=== PATIENT | male | born 1985 | race Caucasian/White ===

== ENCOUNTER 2018-10-12 08:12 | Emergency (ER) | payer BC ==
--- NOTE | 2018-10-12 09:04 | ED Physician Chart ---
ED Chief Complaint/HPI - Patient Information Date Seen:: 10/12/18 Time Seen:: 08:30 Chief Complaint:: acute onset dizziness change stool loose History of Present Illness:: today no vommitting no blood room spinning denies tinnitus no head ache no visual symptoms Allergies:: Allergies Allergy/AdvReac Type Severity Reaction Status Date / Time No Known Allergies Allergy Verified 10/12/18 08:21 Vitals:: Vital Signs - 8 hr 10/12/18 08:22 Temp 98.5 F HR 71 RR 19 BP 130/72 O2 Sat % 97 Review:: Nurse's Note Reviewed ED Review of Systems - Review of Systems General/Constitutional: No fever Skin: No skin lesions Head: No headache Eyes: No loss of vision ENT: No earache Neck: No neck pain Cardio Vascular: No chest pain Pulmonary: No SOB GI: Nausea, Diarrhea G/U: No dysuria Musculoskeletal: No bone or joint pain Hematopoietic: No bruising Allergic/Immuno: No urticaria Neurological: No focal symptoms, Vertigo ED Past Medical History - Past Medical History Past Medical History: No significant medical hx Family History: None Social History: No Drug Use Surgical History: None Psychiatricy History: None ED Physical Exam - Physical Examination General/Constitutional: Awake, Well-developed, well-nourished, Alert, GCS 15, Non-toxic appearing Head: Atraumatic Eyes: Lids, conjuctiva normal Skin: No rash ENMT: TM canals nl, Lips, teeth, gums nl Neck: Nontender Respiratory: Nl effort/Exclusion Cardio Vascular: RRR GI: No tenderness/rebounding/guarding, Nondistended, No mass/bruits : No CVA tenderness Extremities: No tenderness or effusion, Full ROM Neuro/Psych: Alert/oriented, Normal sensory exam, Normal motor strength Misc: Normal back ED Assessment - Assessment General Assessment: acute dizziness ED Septic Shock - . Is Septic Shock (SBP<90, OR Lactate>4 mmol\L) present?: No - <6hrs of presentation: Vital Signs: Vital Signs - 8 hr 10/12/18 08:22 Temp 98.5 F HR 71 RR 19 BP 130/72 O2 Sat % 97
[2018-10-12 09:08] LABS: % EOSINOPHILS 0.9 % (0.0-5.0); % LYMPHOCYTES 15.8 % (20.0-50.0); % MONOCYTES 2.8 % (2.0-10.0); % NEUTROPHILS 80.5 % (40.0-80.0); EOSINOPHILE ABSOLUTE 0.1 Th/cmm (0.1-0.4); HEMATOCRIT 47.2 % (41.0-60); HEMOGLOBIN 15.8 gm/dL (12-16); LYMPHOCYTE ABSOLUTE 1.6 Th/cmm (1.5-3.0); MEAN CELL VOLUME 84.5 fl (80-99); MEAN CORPUSCULAR HEMOGLOBIN 28.2 pg (26.0-30.0); MEAN CORPUSCULAR HGB CONC 33.4 pg (28.0-36.0); MONOCYTE ABSOLUTE 0.3 Th/cmm (0.3-1.0); NEUTROPHILE ABSOLUTE 8.4 Th/cmm (1.8-8.0); PLATELET COUNT 291 Th/cmm (150-400); RED BLOOD COUNT 5.59 Mil/cmm (4.30-5.70); WHITE BLOOD COUNT 10.4 Th/cmm (4.8-10.8)
[2018-10-12 09:23] LABS: ANION GAP 11.1 (7.0-16.0); BUN - UREA NITROGEN 15 mg/dL (7-25); CALCIUM SERUM 10.1 mg/dL (8.6-10.3); CHLORIDE 98 mEq/L (98-107); CREATININE - SERUM 1.2 mg/dL (0.7-1.3); GFR AFRICAN-AMERICAN > 60.0 ml/min (>90); GFR NON AFRICAN-AMERICAN > 60.0 ml/min; GLUCOSE 105 mg/dL (70-105); POTASSIUM SERUM 4.1 mEq/L (3.5-5.1); SODIUM SERUM 133 mEq/L (136-145)
--- NOTE | 2018-10-12 11:04 | Diagnostic Imaging Report ---
Sinuses (3 views) HISTORY: Pain Normal aeration of the maxillary, frontal, ethmoid, sphenoid sinuses. No abnormal soft tissue densities or fluid levels. No bony alterations. IMPRESSION: No acute abnormalities
== END 2018-10-12 11:05 | disposition home or self-care (01) ==
LOC: ER 08:12
DX: R42 Dizziness and giddiness (principal)
CPT/HCPCS: 99284; 96374; 70220; 36415; 85025; 80048; J2405